=== PATIENT | female | born 1950 | race Hispanic/Latino ===

== ENCOUNTER 2019-10-13 20:23 | Emergency (ER) | payer OTHER ==
[~2019-10-13] VITALS: Ht 162.6 cm; Wt 65.8 kg
[~2019-10-13 20:23] MED LIST: ESCITALOPRAM OX10 MG PO; GLIMEPIRIDE2 MG PO; LOMOTIL TABLET1 EACH PO; LOSARTAN POTASS25 MG PO; PANTOPRAZOLE SO20 MG PO; VICTOZA 2-0.6 MG/0.1 SQ; Z.0.FLAGYL500 MG; Z.0.JANUMET 50-1,01 PO; Z.0.LEVAQUIN500 MG; Z.0.VICODIN 5-5001 E
--- NOTE | 2019-10-13 20:43 | Emergency Department Note ---
History of Present Illnes History of Present Illness Chief Complaint: COVID PUI History of Present Illness This is a 69 year old female with abrupt onset of fevers and myalgias today. Patient with two family members (+) COVID-19. Seen at [facility] and [facility] for general check up . 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 Any updates have been documented here. Past Medical History Recent Fever: Yes Clinical Suspicion of Infectio: Yes New/Unexplained Change in Ment: No Past Medical History: Hypertension Other Medical History: ULCERS Past Surgical History: None Social History Smoking Cessation: Never Smoker Alcohol Use: None Any Illegal Drug Use: No Other Last Tetanus: UNK Review of Systems Review of Systems Constitutional: Reports fever, Reports malaise, Reports weakness EENTM: Reports no symptoms Cardiovascular: Reports no symptoms Respiratory: Reports no symptoms Gastrointestinal: Reports no symptoms Genitourinary: Reports no symptoms Musculoskeletal: Reports no symptoms Integumentary: Reports no symptoms Neurological: Reports no symptoms Psychological: Reports no symptoms Endocrine: Reports no symptoms Hematological/Lymphatic: Reports no symptoms Physical Exam Related Data Allergies: Coded Allergies: No Known Allergies (Unverified , 04/19/15) Triage Vital Signs Vital Signs Date Time Temp Pulse Resp B/P (MAP) Pulse Ox O2 Delivery O2 Flow Rate FiO2 10/13/19 20:44 99.9 84 16 198/92 98 Vital signs reviewed: Yes Physical Exam CONSTITUTIONAL Constitutional: Present obese, Present ill appearing HENT HENT: Present normocephalic, Present atraumatic, Present oropharynx clear/moist, Present nose normal HENT L/R: Present left ext ear normal, Present right ext ear normal EYES Eyes: Reports PERRL, Reports conjunctivae normal NECK Neck: Present ROM normal PULMONARY Pulmonary: Present effort normal, Present breath sounds normal CARDIOVASCULAR Cardiovascular: Present regular rhythm, Present heart sounds normal, Present capillary refill normal, Present normal rate GASTROINTESTINAL Abdominal: Present soft, Present nontender, Present bowel sounds normal GENITOURINARY Genitourinary: Present exam deferred SKIN Skin: Present warm, Present dry MUSCULOSKELETAL Musculoskeletal: Present ROM normal NEUROLOGICAL Neurological: Present alert, Present oriented x 3, Present no gross motor or sensory deficits PSYCHOLOGICAL Psychological: Present mood/affect normal, Present judgement normal Results Laboratory Lab results reviewed: Yes Laboratory comments CMP : elevated Glucose CBC: elevated WBC Imaging Imaging results reviewed: Yes Impressions [place] [address] Patient Name: TYRONE MENJIVAR MR #: [id number] : 1950 Age/Sex: 69/F Req #: [id number] Adm Physician: Ordered by: HUSSAIN REYNOLDS DO Report #: [id number] Location: ER Room/Bed: Procedure: [id number] DX/CHEST SINGLE (PORTABLE) Exam Date: 10/13/19 Exam Time: 2139 REPORT STATUS: Signed EXAMINATION: CHEST SINGLE (PORTABLE) INDICATION: Myalgias COMPARISON: None FINDINGS: TUBES and LINES: None. LUNGS: Normal lung volumes. Bibasilar haziness. No consolidations. PLEURA: No pleural effusion or pneumothorax. HEART AND MEDIASTINUM: The cardiomediastinal silhouette is unremarkable. Aortic calcifications. BONES AND SOFT TISSUES: No acute osseous lesion. Soft tissues are unremarkable. Degenerative changes. UPPER ABDOMEN: No free air under the diaphragm. IMPRESSION: Bibasilar haziness can be due to atelectasis or pneumonia. Signed by: Eugene Ortiz DO on 10/13/2019 10:41 PM Dictated By: EUGENE ORTIZ DO 40 Transcribed By: DALTON on 10/13/192240 COPY TO: HUSSAIN REYNOLDS DO~ Procedures 12 Lead ECG Interpretation ECG Interpretation : ECG: ECG 1 [facility] Administrator: Interpreted by ED physician Date: Oct 13, 2019 Time: 21:03 Rhythm: sinus rhythm Rate: normal BPM: 825 QRS axis: normal ST segments normal: Yes T waves normal: Yes Q waves: V1, V2 Clinical Impression: normal ECG Assessment & Plan Medical Decision Making MDM 69 yof with fevers and myalgias with positive exposure to family members with COVID-19 patients. Assessment & Plan Final Impression: (1) Upper respiratory tract infection due to COVID-19 virus (2) Hyperglycemia Depart Disposition: HOME, SELF-correction Meds Reported Medications Pantoprazole Sodium (PANTOPRAZOLE SODIUM) 20 Mg Tablet.dr, 40 MG PO DAILY 04/19/15 Escitalopram Oxalate (ESCITALOPRAM OXALATE) 10 Mg Tablet, 15 MG PO DAILY 04/19/15 Liraglutide (VICTOZA 2-BEBO) 0.6 Mg/0.1 Ml Pen.injctr, 5 UNITS SQ HS 04/19/15 Losartan Potassium (LOSARTAN POTASSIUM) 25 Mg Tablet, 50 MG PO DAILY 04/19/15 Sitagliptin Phos/Metformin Hcl (Janumet 50-1,000 Mg Tablet) 1 Each Tablet, 2 TAB PO DAILY, 0 Refills 02/09/11 Physician Attestation Provider Attestation spoke with patient at 00:19 on 10/14/19. Unable to obtain conclusive results for COVID-19 . patient told that she clinically has the COVID-19 virus HUSSAIN REYNOLDS DO Oct 13, 2019 20:43
[2019-10-13] MEDS ORDERED: KETOROLAC TROMETHAMINE 30 MG/ML VIAL IV STA (20:49)
[2019-10-13] MEDS ORDERED: ACETAMINOPHEN 325 MG TAB PO ONE (21:00)
[2019-10-13 21:11] LABS: BASOPHILS % 0.3 % (0.0-1.0); EOSINOPHILS # (AUTO) 0.1 (0.0-0.4); EOSINOPHILS % 0.4 % (0.0-6.0); HEMATOCRIT 43.9 % (34.2-44.1); HEMOGLOBIN 15.4 g/dL (12.0-16.0); LYMPHOCYTES # (AUTO) 1.3 (1.0-3.2); LYMPHOCYTES % 9.5 % (18.0-39.1); MEAN CORPUSCULAR HEMOGLOBIN 31.2 pg (28-32); MEAN CORPUSCULAR HGB CONC 35.1 g/dL (31-35); MEAN CORPUSCULAR VOLUME 88.9 fL (81-99); MONOCYTES # (AUTO) 0.5 (0.2-0.8); MONOCYTES % 3.5 % (4.4-11.3); NEUTROPHILS # (AUTO) 11.7 (2.1-6.9); NEUTROPHILS % 85.9 % (38.7-80.0); PLATELET COUNT 164 x10e3/uL (140-360); RED BLOOD COUNT 4.94 x10e6/uL (3.6-5.1); RED CELL DISTRIBUTION WIDTH 11.9 % (11.7-14.4)
[2019-10-13 21:27] LABS: ALANINE AMINOTRANSFERASE 25 IU/L (0-55); ALBUMIN 3.8 g/dL (3.5-5.0); ALBUMIN/GLOBULIN RATIO 1.1 (0.8-2.0); ALKALINE PHOSPHATASE 85 IU/L (40-150); ANION GAP 13.3 mmol/L (8-16); BLOOD UREA NITROGEN 13 mg/dL (7-26); BUN/CREATININE RATIO 18 (6-25); CALCIUM 9.5 mg/dL (8.4-10.2); CARBON DIOXIDE 25 mmol/L (22-29); CHLORIDE 101 mmol/L (98-107); CREATININE, SERUM 0.74 mg/dL (0.57-1.11); EST GLOMERULAR FILTRATION RATE > 60 ML/MIN (60-); GLUCOSE 285 mg/dL (74-118); POTASSIUM 4.3 mmol/L (3.5-5.1); SODIUM 135 mmol/L (136-145)
[2019-10-13 21:40] LABS: CLARITY,URINE SL CLOUDY (CLEAR); COLOR,URINE YELLOW (YELLOW); KETONES,URINE NEGATIVE (NEGATIVE); LEUKOCYTE ESTERASE ,URINE NEGATIVE (NEGATIVE); NITRITE,URINE NEGATIVE (NEGATIVE); PROTEIN,URINE DIPSTICK NEGATIVE (NEGATIVE)
[2019-10-13 21:41] LABS: BILIRUBIN,URINE NEGATIVE (NEGATIVE); URINE UROBILINOGEN 0.2 mg/dL (0.2 - 1)
[2019-10-13 21:53] LABS: BACTERIA,URINE FEW /HPF; EPITHELIAL CELLS,URINE FEW /LPF; TRANSITIONAL EPI CELLS,URINE RARE; WBC,URINE (MAN) 0-5 /HPF (0-5)
--- NOTE | 2019-10-13 22:49 | Diagnostic Imaging Report ---
EXAMINATION: CHEST SINGLE (PORTABLE) INDICATION: Myalgias COMPARISON: None FINDINGS: TUBES and LINES: None. LUNGS: Normal lung volumes. Bibasilar haziness. No consolidations. PLEURA: No pleural effusion or pneumothorax. HEART AND MEDIASTINUM: The cardiomediastinal silhouette is unremarkable. Aortic calcifications. BONES AND SOFT TISSUES: No acute osseous lesion. Soft tissues are unremarkable. Degenerative changes. UPPER ABDOMEN: No free air under the diaphragm. IMPRESSION: Bibasilar haziness can be due to atelectasis or pneumonia. Signed by: Eugene Ortiz DO on 10/13/2019 10:41 PM
[2019-10-13 22:50] VITALS: BP 137/65
== END 2019-10-13 23:05 | disposition home or self-care (01) ==
LOC: ER 20:23
DX: R50.9 Fever, unspecified (principal); U07.1 COVID-19; J06.9 Acute upper respiratory infection, unspecified; E11.65 Type 2 diabetes mellitus with hyperglycemia; I10 Essential (primary) hypertension; E78.5 Hyperlipidemia, unspecified; K21.9 Gastro-esophageal reflux disease without esophagitis
CPT/HCPCS: 36415; 71045; 80053; 81001; 85025; 93005; 99284; J1885; 87635

== ENCOUNTER 2019-11-10 19:36 | Emergency (ER) | payer MEDICARE, OTHER ==
[~2019-11-10] VITALS: Ht 162.6 cm; Wt 65.8 kg
[2019-11-10 19:57] LABS: BASOPHILS # (AUTO) 0.1 (0.0-0.1); BASOPHILS % 0.8 % (0.0-1.0); EOSINOPHILS # (AUTO) 0.2 (0.0-0.4); EOSINOPHILS % 2.5 % (0.0-6.0); HEMATOCRIT 41.9 % (34.2-44.1); HEMOGLOBIN 14.6 g/dL (12.0-16.0); LYMPHOCYTES % 31.5 % (18.0-39.1); MEAN CORPUSCULAR HEMOGLOBIN 31.1 pg (28-32); MEAN CORPUSCULAR HGB CONC 34.8 g/dL (31-35); MEAN CORPUSCULAR VOLUME 89.3 fL (81-99); MONOCYTES # (AUTO) 0.5 (0.2-0.8); MONOCYTES % 7.2 % (4.4-11.3); NEUTROPHILS # (AUTO) 3.6 (2.1-6.9); NEUTROPHILS % 57.8 % (38.7-80.0); PLATELET COUNT 176 x10e3/uL (140-360); RED BLOOD COUNT 4.69 x10e6/uL (3.6-5.1); RED CELL DISTRIBUTION WIDTH 11.6 % (11.7-14.4)
--- NOTE | 2019-11-10 20:07 | Emergency Department Note ---
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 Historian: Patient Arrival Mode: Car Onset (how long ago): day(s) (7) Location: CHEST Quality: PAIN, WORSE WITH COUGH AND INSPIRATION Radiation: Reports non-radiation Severity: moderate Onset quality: gradual Duration (how long): day(s) (7) Timing of current episode: unable to specify Progression: waxing and waning Chronicity: new Context: Reports recent illness (HAS HAD COUGH, FEVER OVER PAST WEEK, IS AWAITING COVID 19 RESULTS) Relieving factors: none Exacerbating factors: other (COUGH, INSPIRATION) Associated symptoms: Reports denies other symptoms Treatments prior to arrival: none Past Medical/Family History Physician Review I have reviewed the patient's past medical and family history. Any updates have been documented here. Past Medical History Recent Fever: No Clinical Suspicion of Infectio: No New/Unexplained Change in Ment: No Past Medical History: Hypertension, Diabetes, Anxiety Other Medical History: GASTRIC ULCERS Past Surgical History: None Social History Smoking Cessation: Never Smoker Alcohol Use: None Any Illegal Drug Use: No Physically hurt or threatened: No Family History Family history of heart diseas: No Other family history HTN,DM Other Last Tetanus: 2019 Any Pre-Existing Lines (PICC,: No Review of Systems Review of Systems Constitutional: Reports no symptoms EENTM: Reports no symptoms Cardiovascular: Reports as per HPI Respiratory: Reports as per HPI Gastrointestinal: Reports no symptoms Genitourinary: Reports no symptoms Musculoskeletal: Reports no symptoms Integumentary: Reports no symptoms Neurological: Reports no symptoms Psychological: Reports no symptoms Endocrine: Reports no symptoms Hematological/Lymphatic: Reports no symptoms Physical Exam Related Data Allergies: Coded Allergies: No Known Allergies (Unverified , 04/19/15) Triage Vital Signs Vital Signs Date Time Temp Pulse Resp B/P (MAP) Pulse Ox O2 Delivery O2 Flow Rate FiO2 11/10/19 19:43 98.1 88 20 199/73 100 Room Air Vital signs reviewed: Yes Physical Exam CONSTITUTIONAL Constitutional: Present well-developed, Present well-nourished, Present other (PT IN NO DISTRESS) HENT HENT: Present normocephalic, Present atraumatic, Present oropharynx clear/moist, Present nose normal HENT L/R: Present left ext ear normal, Present right ext ear normal EYES Eyes: Reports PERRL, Reports conjunctivae normal NECK Neck: Present ROM normal PULMONARY Pulmonary: Present effort normal, Present chest tenderness (CHEST TENDER TO 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 AND REPRODUCES PT'S CHEST PAIN), Present other (BREATH SOUNDS SLIGHTLY DECREASED AT BASES BILATERAL, ) CARDIOVASCULAR Cardiovascular: Present regular rhythm, Present heart sounds normal, Present capillary refill normal, Present normal rate GASTROINTESTINAL Abdominal: Present soft, Present nontender, Present bowel sounds normal GENITOURINARY Genitourinary: Present exam deferred SKIN Skin: Present warm, Present dry MUSCULOSKELETAL Musculoskeletal: Present ROM normal NEUROLOGICAL Neurological: Present alert, Present oriented x 3, Present no gross motor or sensory deficits PSYCHOLOGICAL Psychological: Present mood/affect normal, Present judgement normal Results Laboratory Laboratory Laboratory Tests Test 11/10/19 19:49 White Blood Count 6.29 x10e3/uL (4.8-10.8) Red Blood Count 4.69 x10e6/uL (3.6-5.1) Hemoglobin 14.6 g/dL (12.0-16.0) Hematocrit 41.9 % (34.2-44.1) Mean Corpuscular Volume 89.3 fL (81-99) Mean Corpuscular Hemoglobin 31.1 pg (28-32) Mean Corpuscular Hemoglobin Concent 34.8 g/dL (31-35) Red Cell Distribution Width 11.6 % (11.7-14.4) Platelet Count 176 x10e3/uL (140-360) Neutrophils (%) (Auto) 57.8 % (38.7-80.0) Lymphocytes (%) (Auto) 31.5 % (18.0-39.1) Monocytes (%) (Auto) 7.2 % (4.4-11.3) Eosinophils (%) (Auto) 2.5 % (0.0-6.0) Basophils (%) (Auto) 0.8 % (0.0-1.0) Neutrophils # (Auto) 3.6 (2.1-6.9) Lymphocytes # (Auto) 2.0 (1.0-3.2) Monocytes # (Auto) 0.5 (0.2-0.8) Eosinophils # (Auto) 0.2 (0.0-0.4) Basophils # (Auto) 0.1 (0.0-0.1) Absolute Immature Granulocyte (auto 0.01 x10e3/uL (0-0.1) Creatine Kinase 77 IU/L (29-168) Creatine Kinase MB 0.90 ng/mL (0-5.0) Troponin I < 0.001 ng/mL (0-0.300) Laboratory Tests Test 11/10/19 19:49 Lab results reviewed: Yes Imaging Imaging results reviewed: Yes Impressions Procedure: [id number] DX/CHEST SINGLE (PORTABLE) Exam Date: 11/10/19 Exam Time: 2132 REPORT STATUS: Signed Examination: Single AP view of the chest. COMPARISON: Portable chest 10/13/2019 joint INDICATION: Chest pain and cough for 2 weeks patient states COVID positive IMPRESSION: 1. Lines and Tubes: None 2. Lungs are grossly clear. No consolidation or effusion. 3. Cardiomediastinal silhouette is normal. Pulmonary vasculature is normal. 4. No acute bony abnormalities. Signed by: Dr. Little Cortez M.D. 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: Interpreted by ED physician Date: Nov 10, 2019 Time: 19:45 Rhythm: sinus rhythm Rate: normal BPM: 70 QRS axis: normal ST segments normal: Yes T waves normal: No T waves flattening: V1 Q waves: V1, V2, V3 Clinical Impression: abnormal ECG Assessment & Plan Medical Decision Making MDM PT WITH CHEST PAIN MADE WORSE BY INSPIRATION AND COUGHING, PT HAS HAD FEVER, COUGH, CHILLS FOR A WEEK, IS AWAITING COVID 19 TEST RESULTS CBC, CMP, EKG, CARDIAC ENZYMES, CXR ORDERED TO EVAL FOR MYOCARDIAL INFARCTION, ELECTROLYTE ABNORMALITY, PNEUMONIA, Assessment & Plan Final Impression: (1) Chest wall pain Depart Disposition: HOME, SELF-CARE Last Vital Signs Date Time Temp Pulse Resp B/P (MAP) Pulse Ox O2 Delivery O2 Flow Rate FiO2 11/10/19 19:43 98.1 88 20 199/73 100 Room Air Home Meds Reported Medications Pantoprazole Sodium (PANTOPRAZOLE SODIUM) 20 Mg Tablet.dr, 40 MG PO DAILY 04/19/15 Escitalopram Oxalate (ESCITALOPRAM OXALATE) 10 Mg Tablet, 15 MG PO DAILY 04/19/15 Liraglutide (VICTOZA 2-BEBO) 0.6 Mg/0.1 Ml Pen.injctr, 5 UNITS SQ HS 04/19/15 Losartan Potassium (LOSARTAN POTASSIUM) 25 Mg Tablet, 50 MG PO DAILY 04/19/15 Sitagliptin Phos/Metformin Hcl (Janumet 50-1,000 Mg Tablet) 1 Each Tablet, 2 TAB PO DAILY, 0 Refills 02/09/11 REHAN PEARCE MD Nov 10, 2019 20:07
[2019-11-10 20:15] LABS: CREATINE KINASE 77 IU/L (29-168)
--- NOTE | 2019-11-10 21:53 | Diagnostic Imaging Report ---
Examination: Single AP view of the chest. COMPARISON: Portable chest 10/13/2019 joint INDICATION: Chest pain and cough for 2 weeks patient states COVID positive IMPRESSION: 1. Lines and Tubes: None 2. Lungs are grossly clear. No consolidation or effusion. 3. Cardiomediastinal silhouette is normal. Pulmonary vasculature is normal. 4. No acute bony abnormalities. Signed by: Dr. Trevon Wood M.D. on 11/10/2019 9:50 PM
== END 2019-11-10 22:18 | disposition home or self-care (01) ==
LOC: ER 19:45
DX: R07.89 Other chest pain (principal); R06.02 Shortness of breath; I10 Essential (primary) hypertension; E11.9 Type 2 diabetes mellitus without complications; F41.9 Anxiety disorder, unspecified; Z87.19 Personal history of other diseases of the digestive system; R05 Cough
CPT/HCPCS: 36415; 71045; 82550; 82553; 84484; 85025; 93005; 99284

== ENCOUNTER → 2021-10-17 | Outpatient (CLI) | payer MEDICARE | LOC: RAD 12:18 | PROVIDERS: ATTEND Family Medicine | DX: J45.909 Unspecified asthma, uncomplicated (principal) | CPT/HCPCS: 71046 ==

== ENCOUNTER 2024-01-16 19:49 | Observation (INO) | payer MEDICARE ==
[~2024-01-16] VITALS: Ht 154.9 cm; Wt 67.6 kg
[2024-01-16 20:30] LABS: BASOPHILS % 0.7 % (0.0-1.0); EOSINOPHILS # (AUTO) 0.2 (0.0-0.4); EOSINOPHILS % 2.5 % (0.0-6.0); HEMATOCRIT 43.1 % (34.2-44.1); HEMOGLOBIN 14.1 g/dL (12.0-16.0); LYMPHOCYTES # (AUTO) 1.9 (1.0-3.2); LYMPHOCYTES % 31.2 % (18.0-39.1); MEAN CORPUSCULAR HEMOGLOBIN 31.9 pg (28-32); MEAN CORPUSCULAR HGB CONC 32.7 g/dL (31-35); MEAN CORPUSCULAR VOLUME 97.5 fL (81-99); MONOCYTES # (AUTO) 0.6 (0.2-0.8); MONOCYTES % 9.9 % (4.4-11.3); NEUTROPHILS # (AUTO) 3.3 (2.1-6.9); NEUTROPHILS % 55.4 % (38.7-80.0); PLATELET COUNT 169 x10e3/uL (140-360); RED BLOOD COUNT 4.42 x10e6/uL (3.6-5.1); RED CELL DISTRIBUTION WIDTH 11.9 % (11.7-14.4); WHITE BLOOD COUNT 5.93 x10e3/uL (4.8-10.8)
[2024-01-16 20:41] LABS: INR 1.01; PROTHROMBIN TIME 13.8 seconds (11.9-14.5)
[2024-01-16 20:42] LABS: PARTIAL THROMBOPLASTIN TIME 28.4 seconds (23.8-35.5)
[2024-01-16 20:51] LABS: ALANINE AMINOTRANSFERASE 11 IU/L (0-55); ALBUMIN 4.1 g/dL (3.5-5.0); ALBUMIN/GLOBULIN RATIO 1.1 (0.8-2.0); ALKALINE PHOSPHATASE 116 IU/L (40-150); ANION GAP 13.1 mmol/L (8-16); BILIRUBIN,TOTAL 0.4 mg/dL (0.2-1.2); BLOOD UREA NITROGEN 17 mg/dL (7-26); BUN/CREATININE RATIO 17 (6-25); CALCIUM 9.3 mg/dL (8.4-10.2); CARBON DIOXIDE 24 mmol/L (22-29); CHLORIDE 106 mmol/L (98-107); CREATINE KINASE 135 IU/L (29-168); EST GLOMERULAR FILTRATION RATE 60 ML/MIN (>=60); GLUCOSE 276 mg/dL (74-118); POTASSIUM 4.1 mmol/L (3.5-5.1); SODIUM 139 mmol/L (136-145); TOTAL PROTEIN 7.9 g/dL (6.5-8.1)
[2024-01-16 21:00] LABS: TROPONIN I < 0.001 ng/mL (0-0.300)
[2024-01-16 21:30] VITALS: PULSE 71; RESP 16; O2SAT 99
[2024-01-16] MEDS ORDERED: ONDANSETRON HCL INJ 2MG/ML 2ML 2 MG/ML VIAL IV PRN (21:30)
[2024-01-16] MEDS ORDERED: DEXTROSE 50% SYRINGE 50 ML IV PRN (21:30)
[2024-01-16] MEDS ORDERED: Morphine 4mg INJECTION 4 MG/ML INJ IV PRN (21:30)
[2024-01-16] MEDS: INSULIN REGULAR, HUMAN 100 UNIT/1 ML SQ SCH (22:25)
[2024-01-17] VITALS (7 sets, daily range): BP systolic 112–170; BP diastolic 45–99; PULSE 62–69; RESP 16–18; TEMP 97.3–208.8; O2SAT 95–100
[2024-01-17] MEDS ORDERED: GUAIFENESIN/DEXTROMETHORPHAN LIQD 5 ML UDC PO PRN
[2024-01-17] MEDS ORDERED: DOCUSATE SODIUM 100 MG CAP PO PRN
[2024-01-17] MEDS ORDERED: MELATONIN 3 MG TAB PO PRN
[2024-01-17] MEDS ORDERED: MAGNESIUM/ALUMINUM/SIMETHICONE 30 ML UDC PO PRN
[2024-01-17 07:04] LABS: CREATINE KINASE 106 IU/L (29-168)
[2024-01-17 07:26] LABS: TROPONIN I < 0.001 ng/mL (0-0.300)
[2024-01-17] MEDS ORDERED: INSULIN REGULAR, HUMAN 100 UNIT/1 ML SQ SCH (07:30)
[2024-01-17] MEDS: PANTOPRAZOLE SOD 40 MG TABEC PO SCH (08:52)
[2024-01-17] MEDS: MULTIVITAMINS/MINERALS TAB PO SCH (08:53)
[2024-01-17] MEDS: ESCITALOPRAM OXALATE 10 MG TAB PO SCH (08:54)
[2024-01-17] MEDS: LOSARTAN POTASSIUM 25 MG TAB PO SCH (08:57)
[2024-01-17] MEDS: INSULIN GLARGINE 100 UNITS/ML VIAL SQ SCH (09:01)
[2024-01-17 14:53] LABS: CREATINE KINASE 110 IU/L (29-168)
[2024-01-17 15:02] LABS: TROPONIN I < 0.001 ng/mL (0-0.300)
[2024-01-17] MEDS: ACETAMINOPHEN 325 MG TAB PO PRN (20:31)
[2024-01-17] MEDS: HYDRALAZINE HCL 20 MG/ML VIAL IV PRN (20:32)
[2024-01-17] MEDS ORDERED: LANTUS 3ML100 UNITS/ SQ (21:43)
[2024-01-17] MEDS ORDERED: OLMESARTAN-HCT1 EAC2 (21:43)
[2024-01-17] MEDS ORDERED: JARDIANCE25 MG (21:43)
[2024-01-18] VITALS: BP 112/45; PULSE 65; RESP 15; RESP 16; TEMP 97.8; O2SAT 100
[2024-01-18 05:19] VITALS: BP 113/45; PULSE 65; RESP 18; TEMP 98; O2SAT 100
[2024-01-18 08:48] VITALS: BP 122/68; PULSE 69; RESP 18; TEMP 98.3; O2SAT 98
[2024-01-18 09:00] VITALS: BP 122/68; PULSE 69; RESP 18; TEMP 98.3; O2SAT 98
[2024-01-18] MEDS ORDERED: DICYCLOMINE HCL20 MG PO (10:45)
[2024-01-18] MEDS ORDERED: PANTOPRAZOLE SO40 MG PO (10:45)
[2024-01-18] MEDS ORDERED: ONDANSETRON HCL 4 MG ORAL DISINTEGRATING TAB PO PRN (11:30)
== END 2024-01-18 12:03 | disposition home or self-care (01) ==
LOC: ER 20:01 → ERHOLD 21:31 → MED/SURG3 01-17 21:38
PROVIDERS: ADMIT Internal Medicine Critical Care Medicine; ATTEND Internal Medicine Critical Care Medicine
DX: R07.89 Other chest pain (principal); R94.31 Abnormal electrocardiogram [ECG] [EKG]; R06.02 Shortness of breath; R61 Generalized hyperhidrosis; I10 Essential (primary) hypertension; E78.5 Hyperlipidemia, unspecified; E11.9 Type 2 diabetes mellitus without complications; Z79.84 Long term (current) use of oral hypoglycemic drugs; J45.909 Unspecified asthma, uncomplicated; F41.9 Anxiety disorder, unspecified; K27.9 Peptic ulcer, site unspecified, unspecified as acute or chronic, without hemorrhage or perforation; Z79.899 Other long term (current) drug therapy
CPT/HCPCS: 36415; 71045; 80053; 80061; 82550 ×2; 82948 ×2; 83880; 84484 ×2; 85025; 85610; 85730; 93005; 93306; 94799 ×3; 99284; G0378 ×3; J0360; J1815 ×2; S0164 ×2

== ENCOUNTER 2024-04-19 05:27 | Emergency (ER) | payer MEDICARE ==
[~2024-04-19] VITALS: Ht 157.5 cm; Wt 66.7 kg
[~2024-04-19 05:27] MED LIST changes: +DICYCLOMINE HCL20 MG PO; +JARDIANCE25 MG; +LANTUS 3ML100 UNITS/ SQ; +OLMESARTAN-HCT1 EAC2; +PANTOPRAZOLE SO40 MG PO
[2024-04-19 05:30] VITALS: PULSE 75; RESP 18; TEMP 98.8
[2024-04-19] MEDS ORDERED: CYCLOBENZAPRINE10 MG PO (06:40)
[2024-04-19] MEDS: KETOROLAC TROMETHAMINE 60 MG/2 ML VIAL IM ONE (07:20)
[2024-04-19] MEDS: CYCLOBENZAPRINE HCL 10 MG TAB PO ONE (07:20)
[2024-04-19 07:25] VITALS: BP 181/80; PULSE 66; RESP 15; TEMP 98; O2SAT 98
== END 2024-04-19 07:33 | disposition home or self-care (01) ==
LOC: ER 06:12
DX: M54.2 Cervicalgia (principal); M79.18 Myalgia, other site; I10 Essential (primary) hypertension; E11.9 Type 2 diabetes mellitus without complications; J45.909 Unspecified asthma, uncomplicated; F41.9 Anxiety disorder, unspecified; Z87.19 Personal history of other diseases of the digestive system
CPT/HCPCS: 99283; J1885

== ENCOUNTER 2024-10-23 13:14 | Emergency (ER) | payer MEDICARE ==
[~2024-10-23] VITALS: Ht 154.9 cm; Wt 65.8 kg
[~2024-10-23 13:14] MED LIST changes: +CYCLOBENZAPRINE10 MG PO
[2024-10-23 13:25] VITALS: TEMP 98.5
[2024-10-23 13:47] LABS: BASOPHILS % 0.3 % (0.0-1.0); EOSINOPHILS % 0.3 % (0.0-6.0); HEMATOCRIT 42.2 % (34.2-44.1); HEMOGLOBIN 14.9 g/dL (12.0-16.0); LYMPHOCYTES # (AUTO) 0.7 (1.0-3.2); LYMPHOCYTES % 5.3 % (18.0-39.1); MEAN CORPUSCULAR HEMOGLOBIN 31.6 pg (28-32); MEAN CORPUSCULAR HGB CONC 35.3 g/dL (31-35); MEAN CORPUSCULAR VOLUME 89.4 fL (81-99); MONOCYTES # (AUTO) 0.4 (0.2-0.8); NEUTROPHILS # (AUTO) 11.4 (2.1-6.9); NEUTROPHILS % 90.6 % (38.7-80.0); PLATELET COUNT 181 x10e3/uL (140-360); RED BLOOD COUNT 4.72 x10e6/uL (3.6-5.1); RED CELL DISTRIBUTION WIDTH 11.9 % (11.7-14.4); WHITE BLOOD COUNT 12.55 x10e3/uL (4.8-10.8)
[2024-10-23] MEDS: SODIUM CHLORIDE 0.9% 1000ML 1,000 ML IV STA (13:48)
[2024-10-23 14:01] LABS: ALBUMIN 4.1 g/dL (3.5-5.0); ALBUMIN/GLOBULIN RATIO 1.1 (0.8-2.0); ANION GAP 21.2 mmol/L (8-16); BILIRUBIN,TOTAL 1.2 mg/dL (0.2-1.2); CALCIUM 9.1 mg/dL (8.4-10.2); CREATININE, SERUM 0.88 mg/dL (0.57-1.11); POTASSIUM 4.2 mmol/L (3.5-5.1); TOTAL PROTEIN 7.9 g/dL (6.5-8.1)
[2024-10-23 14:19] LABS: CLARITY,URINE SL CLOUDY (CLEAR); COLOR,URINE YELLOW (YELLOW); GLUCOSE, URINE 500 (NEGATIVE); KETONES,URINE 2+ (NEGATIVE); LEUKOCYTE ESTERASE ,URINE NEGATIVE (NEGATIVE); NITRITE,URINE NEGATIVE (NEGATIVE); PH,URINE 5 (5 - 7); PROTEIN,URINE DIPSTICK 1+ (NEGATIVE)
[2024-10-23 14:20] LABS: BILIRUBIN,URINE NEGATIVE (NEGATIVE); URINE UROBILINOGEN 0.2 mg/dL (0.2 - 1)
[2024-10-23 14:34] LABS: BACTERIA,URINE RARE /HPF
[2024-10-23 14:35] LABS: EPITHELIAL CELLS,URINE FEW /LPF
[2024-10-23] MEDS: ONDANSETRON HCL INJ 2MG/ML 2ML 2 MG/ML VIAL IV PRN (14:57)
[2024-10-23] MEDS ORDERED: IOPAMIDOL 370 MG/ML 100 ML INFUS..BTL INJ ONE (15:16)
[2024-10-23] MEDS ORDERED: OMEPRAZOLE40 MG PO (16:15)
[2024-10-23] MEDS ORDERED: ONDANSETRON ODT4 MG PO (16:15)
[2024-10-23 16:25] VITALS: PULSE 74; RESP 18
[2024-10-23] MEDS: BELLADONNA ALK/PHENOBARBITAL 5 ML UDC PO STA (17:17)
[2024-10-23] MEDS: DICYCLOMINE HCL 20 MG/2 ML VIAL IM ONE (17:18)
[2024-10-23] MEDS: MAGNESIUM/ALUMINUM/SIMETHICONE 30 ML UDC PO ONE (17:18)
[2024-10-23] MEDS: LIDOCAINE VISC 2% SOLN 15 ML UDC PO ONE (17:18)
[2024-10-23 17:19] VITALS: BP 131/84; PULSE 71; RESP 18; TEMP 98.3; O2SAT 98
== END 2024-10-23 17:27 | disposition home or self-care (01) ==
LOC: ER 13:34
DX: R10.13 Epigastric pain (principal); K29.70 Gastritis, unspecified, without bleeding; E11.65 Type 2 diabetes mellitus with hyperglycemia; I10 Essential (primary) hypertension; J45.909 Unspecified asthma, uncomplicated; K21.9 Gastro-esophageal reflux disease without esophagitis; F41.9 Anxiety disorder, unspecified; R94.31 Abnormal electrocardiogram [ECG] [EKG]; Z87.19 Personal history of other diseases of the digestive system
CPT/HCPCS: 36415; 74177; 80053; 81001; 83690; 84484; 85025; 93005; 99284; J0500; J2405; J2470; J7030; Q9967